=== PATIENT | male | born 1970 | race Caucasian/White ===

== ENCOUNTER 2020-10-22 09:59 | Emergency (ER) | payer OTHER ==
[2020-10-22] MEDS ORDERED: Ketorolac Tromethamine 60 MG/2 ML VIAL ONE (10:23)
== END 2020-10-22 11:00 | disposition home or self-care (01) ==
LOC: BURERS 09:59
DX: S16.1XXA Strain of muscle, fascia and tendon at neck level, initial encounter (principal); S29.012A Strain of muscle and tendon of back wall of thorax, initial encounter; F17.220 Nicotine dependence, chewing tobacco, uncomplicated; V44.5XXA Car driver injured in collision with heavy transport vehicle or bus in traffic accident, initial encounter
CPT/HCPCS: 96372; 99283; J1885

== ENCOUNTER 2023-12-05 13:38 | Emergency (ER) | payer OTHER ==
[2023-12-05] MEDS ORDERED: Oxymetazoline HCl 0.05% (30 ML BOT) ONE (14:25)
== END 2023-12-05 14:23 | disposition home or self-care (01) ==
LOC: BURERS 13:38
DX: R04.0 Epistaxis (principal)
CPT/HCPCS: 99283